=== PATIENT | female | born 1935 | race Caucasian/White ===

== ENCOUNTER 2016-10-16 10:57 | Emergency (ER) | payer MEDICARE ==
[~2016-10-16] VITALS: Ht 160 cm; Wt 60.5 kg
[2016-10-16 11:02] VITALS: TEMP 97.6
[2016-10-16 12:06] LABS: BASO % 0.9 % (0.0-2.0); EOS # 0.1 (0.0-0.7); EOS % 2.6 % (0-4.0); GRAN # 3.3 (1.4-6.5); GRAN % 71.1 % (42.2-75.2); LYMPH # 0.8 (1.2-3.4); LYMPH % 17.3 % (20.0-51.0); MEAN CELL VOLUME 93 fl (80.0-100.0); MEAN CORPUSCULAR HGB CONC 34 g/dl (33.0-37.0); MEAN PLATELET VOLUME 9.6 fl (7.4-10.4); MONO # 0.4 (0.1-0.6); MONO % 7.7 % (1.7-9.3); PLATELET COUNT 124 K/mm3 (130-400); WHITE BLOOD COUNT 4.7 K/mm3 (4.8-10.8)
[2016-10-16 12:07] LABS: HEMATOCRIT 25.9 % (37.0-47.0); HEMOGLOBIN 8.8 g/dl (12.5-16.0); MEAN CORPUSCULAR HEMOGLOBIN 31 pg (27.0-31.0)
[2016-10-16 12:24] LABS: ADJUSTED CALCIUM 8.5 mg/dL (8.4-10.2); ALANINE AMINOTRANSFERASE 22 U/L (9-52); ALBUMIN 3.5 gm/dL (3.5-5.0); ALKALINE PHOSPHATASE 56 U/L (50-136); ANION GAP 12 mmol/L (7-16); BILIRUBIN,TOTAL 0.6 mg/dL (0.0-1.0); BLOOD UREA NITROGEN 46 mg/dL (7-17); CALCIUM 8.1 mg/dL (8.4-10.2); CARBON DIOXIDE 22 mmol/L (22-30); CHLORIDE 107 mmol/L (98-107); CREATININE, serum 2.67 mg/dL (0.52-1.25); GLUCOSE 45 mg/dL (74-106); POTASSIUM 4.4 mmol/L (3.4-5.0); SODIUM 141 mmol/L (137-145); TOTAL PROTEIN 6.6 gm/dL (6.4-8.2)
[2016-10-16 12:57] LABS: C-REACTIVE PROTEIN < 0.5 mg/dL (0.0-0.9)
[2016-10-16 14:42] VITALS: BP 201/91; PULSE 57
== END 2016-10-16 14:42 | disposition home or self-care (01) ==
LOC: COL.ER 10:57
PROVIDERS: Family Medicine
DX: E11.649 Type 2 diabetes mellitus with hypoglycemia without coma (principal); E11.22 Type 2 diabetes mellitus with diabetic chronic kidney disease; N18.9 Chronic kidney disease, unspecified; Z79.4 Long term (current) use of insulin
CPT/HCPCS: J7042

== ENCOUNTER 2017-01-08 20:13 | Inpatient (IN) | payer MEDICARE ==
[~2017-01-08] VITALS: Ht 154.9 cm; Wt 61.2 kg
[2017-01-08 22:36] VITALS: BP 162/64; PULSE 53; TEMP 96.5
[2017-01-08 23:20] LABS: MEAN CELL VOLUME 97 fl (80.0-100.0); MEAN CORPUSCULAR HGB CONC 33 g/dl (33.0-37.0); MEAN PLATELET VOLUME 12.1 fl (7.4-10.4); PLATELET COUNT 112 K/mm3 (130-400); RED BLOOD COUNT 2.98 M/mm3 (4.10-5.30); REDCELL DISTRIBUTION WIDTH-CV 14.6 % (11.5-14.5)
[2017-01-08 23:22] LABS: HEMATOCRIT 28.9 % (37.0-47.0); HEMOGLOBIN 9.4 g/dl (12.5-16.0); MEAN CORPUSCULAR HEMOGLOBIN 32 pg (27.0-31.0)
[2017-01-08 23:24] LABS: ADD PATHOLOGY DIFF REVIEW NO; WHITE BLOOD COUNT 1.6 K/mm3 (4.8-10.8)
[2017-01-08 23:26] LABS: INR 1.2 (0.8-3.0); PROTHROMBIN TIME 13.7 SECONDS (9.7-12.8)
[2017-01-08 23:29] LABS: PARTIAL THROMBOPLASTIN TIME 37.4 SECONDS (26.0-37.0)
[2017-01-08 23:30] LABS: ADJUSTED CALCIUM 8.6 mg/dL (8.4-10.2); ALBUMIN 3.2 gm/dL (3.5-5.0); BILIRUBIN,TOTAL 0.8 mg/dL (0.0-1.0); CREATININE, serum 3.52 mg/dL (0.52-1.25); MAGNESIUM 1.8 mg/dL (1.6-2.3); PHOSPHOROUS 5.1 mg/dL (2.5-4.5); POTASSIUM 4.7 mmol/L (3.4-5.0); TOTAL PROTEIN 5.9 gm/dL (6.4-8.2)
[2017-01-09] VITALS (716 sets, daily range): BP systolic 101–141; BP diastolic 40–68; PULSE 52–61; TEMP 96.7–99.7; O2SAT 86–100
[2017-01-09 00:15] LABS: BAND 4 % (0-10); EOSINOPHIL 4 % (0-4); NEUTROPHILS 46 % (42.0-75.2); POLYCHROMASIA 1+; TOTAL CELLS COUNTED 100
[2017-01-09 00:16] LABS: SCHISTOCYTES 1+
[2017-01-09 00:17] LABS: ANISOCYTOSIS 1+; MICROCYTOSIS 1+
[2017-01-09 05:49] LABS: ARTERIAL BLD GAS O2 SATURATION 94.8 % (92-100); ARTERIAL BLD GAS TCO2 CT 15.6; ARTERIAL BLOOD GAS BASE EXCESS -12.3 (-2-2); ARTERIAL BLOOD GAS HCO3 14.4 meq/L (22-26); ARTERIAL BLOOD GAS PHT 7.22 C (7.35-7.45); ARTERIAL BLOOD GAS PO2 86.4 mmHg (80-100); ARTERIAL BLOOD GAS PO2T 86.4 (80-100); ARTERIAL BLOOD GAS pH 7.22 (7.35-7.45); OXYHEMOGLOBIN 93.9 %
[2017-01-09 06:06] LABS: ALLEN TEST NO; ATS? NO
[2017-01-09] MEDS ORDERED: CALCITRIOL PO (06:25)
[2017-01-09] MEDS ORDERED: COREG12.5 MG PO (06:26)
[2017-01-09] MEDS ORDERED: CATAPRES 0.1MG0.1 MG PO (06:27)
[2017-01-09] MEDS ORDERED: LYRICA 25MG CAP25 MG PO (06:28)
[2017-01-09] MEDS ORDERED: HUMALOG100 U/ML SQ (06:28)
[2017-01-09 06:48] LABS: MEAN CELL VOLUME 100 fl (80.0-100.0); MEAN CORPUSCULAR HGB CONC 32 g/dl (33.0-37.0); MEAN PLATELET VOLUME 12.2 fl (7.4-10.4); PLATELET COUNT 90 K/mm3 (130-400); RED BLOOD COUNT 2.66 M/mm3 (4.10-5.30); REDCELL DISTRIBUTION WIDTH-CV 14.7 % (11.5-14.5)
[2017-01-09 06:50] LABS: CALCIUM 7.4 mg/dL (8.4-10.2); CREATININE, serum 3.38 mg/dL (0.52-1.25); POTASSIUM 4.6 mmol/L (3.4-5.0)
[2017-01-09 07:05] LABS: ADD PATHOLOGY DIFF REVIEW NO; HEMATOCRIT 26.7 % (37.0-47.0); HEMOGLOBIN 8.4 g/dl (12.5-16.0); MEAN CORPUSCULAR HEMOGLOBIN 32 pg (27.0-31.0); WHITE BLOOD COUNT 1.6 K/mm3 (4.8-10.8)
[2017-01-09 09:53] LABS: ARTERIAL BLD GAS O2 SATURATION 97.4 % (92-100); ARTERIAL BLD GAS TCO2 CT 13.6; ARTERIAL BLOOD GAS HCO3 12.9 meq/L (22-26); ARTERIAL BLOOD GAS PO2 113.9 mmHg (80-100); ARTERIAL BLOOD GAS pH 7.38 (7.35-7.45); OXYHEMOGLOBIN 96.5 %
[2017-01-09 09:55] LABS: ABG VENTILATOR TIDAL VOLUME 430 mL; ATS? NO
[2017-01-09 12:16] LABS: ARTERIAL BLD GAS O2 SATURATION 94.4 % (92-100); ARTERIAL BLD GAS TCO2 CT 13.8; ARTERIAL BLOOD GAS BASE EXCESS -9.6 (-2-2); ARTERIAL BLOOD GAS HCO3 13.2 meq/L (22-26); ARTERIAL BLOOD GAS PHT 7.43 C (7.35-7.45); ARTERIAL BLOOD GAS PO2 72.4 mmHg (80-100); ARTERIAL BLOOD GAS PO2T 72.4 (80-100); ARTERIAL BLOOD GAS pH 7.43 (7.35-7.45); OXYHEMOGLOBIN 93.6 %
[2017-01-09 12:18] LABS: ATS? YES
[2017-01-09 14:15] LABS: ACANTHOCYTES 1+; ANISOCYTOSIS 1+; BAND 46 % (0-10); MYELOCYTE 1 % (0-0); NEUTROPHILS 36 % (42.0-75.2); PLATELET ESTIMATE DECREASED (NORMAL); TOTAL CELLS COUNTED 100
[2017-01-09 19:16] LABS: MEAN CORPUSCULAR HGB CONC 34 g/dl (33.0-37.0); MEAN PLATELET VOLUME 12.2 fl (7.4-10.4); PLATELET COUNT 93 K/mm3 (130-400); REDCELL DISTRIBUTION WIDTH-CV 14.8 % (11.5-14.5); WHITE BLOOD COUNT 3.2 K/mm3 (4.8-10.8)
[2017-01-09 19:21] LABS: CALCIUM 7.2 mg/dL (8.4-10.2); CREATININE, serum 3.62 mg/dL (0.52-1.25); MAGNESIUM 1.5 mg/dL (1.6-2.3); PHOSPHOROUS 4.8 mg/dL (2.5-4.5); POTASSIUM 4.4 mmol/L (3.4-5.0)
[2017-01-09 19:31] LABS: ADD PATHOLOGY DIFF REVIEW NO; HEMATOCRIT 22.7 % (37.0-47.0); HEMOGLOBIN 7.6 g/dl (12.5-16.0); MEAN CELL VOLUME 95 fl (80.0-100.0); MEAN CORPUSCULAR HEMOGLOBIN 32 pg (27.0-31.0)
[2017-01-09 19:47] LABS: ARTERIAL BLD GAS O2 SATURATION 93.2 % (92-100); ARTERIAL BLD GAS TCO2 CT 16.3; ARTERIAL BLOOD GAS BASE EXCESS -7.2 (-2-2); ARTERIAL BLOOD GAS HCO3 15.6 meq/L (22-26); ARTERIAL BLOOD GAS PHT 7.46 C (7.35-7.45); ARTERIAL BLOOD GAS PO2 65.6 mmHg (80-100); ARTERIAL BLOOD GAS PO2T 65.6 (80-100); ARTERIAL BLOOD GAS pH 7.46 (7.35-7.45); OXYHEMOGLOBIN 92.3 %
[2017-01-09 19:50] LABS: ALLEN TEST NO; ATS? YES
[2017-01-09 20:58] LABS: BAND 48 % (0-10); NEUTROPHILS 38 % (42.0-75.2); PLATELET ESTIMATE NORMAL (NORMAL); TOTAL CELLS COUNTED 100
[2017-01-10] VITALS (683 sets, daily range): BP systolic 101–129; BP diastolic 39–56; PULSE 60–69; TEMP 97.6–99.3; O2SAT 90–100
[2017-01-10 04:50] LABS: MEAN CELL VOLUME 94 fl (80.0-100.0); MEAN CORPUSCULAR HGB CONC 33 g/dl (33.0-37.0); MEAN PLATELET VOLUME 12.6 fl (7.4-10.4); PLATELET COUNT 92 K/mm3 (130-400); RED BLOOD COUNT 2.43 M/mm3 (4.10-5.30); REDCELL DISTRIBUTION WIDTH-CV 14.6 % (11.5-14.5); WHITE BLOOD COUNT 4.5 K/mm3 (4.8-10.8)
[2017-01-10 05:07] LABS: ADJUSTED CALCIUM 8.7 mg/dL (8.4-10.2); ALBUMIN 2.3 gm/dL (3.5-5.0); BILIRUBIN,TOTAL 0.7 mg/dL (0.0-1.0); CALCIUM 7.3 mg/dL (8.4-10.2); MAGNESIUM 1.5 mg/dL (1.6-2.3); POTASSIUM 4.3 mmol/L (3.4-5.0); TOTAL PROTEIN 4.6 gm/dL (6.4-8.2)
[2017-01-10 05:11] LABS: ARTERIAL BLD GAS O2 SATURATION 95.5 % (92-100); ARTERIAL BLD GAS TCO2 CT 17.4; ARTERIAL BLOOD GAS BASE EXCESS -5.9 (-2-2); ARTERIAL BLOOD GAS HCO3 16.7 meq/L (22-26); ARTERIAL BLOOD GAS PHT 7.47 C (7.35-7.45); ARTERIAL BLOOD GAS PO2 86.4 mmHg (80-100); ARTERIAL BLOOD GAS PO2T 86.4 (80-100); ARTERIAL BLOOD GAS pH 7.47 (7.35-7.45); OXYHEMOGLOBIN 94.4 %
[2017-01-10 05:14] LABS: ALLEN TEST NO; ATS? YES
[2017-01-10 05:28] LABS: ADD PATHOLOGY DIFF REVIEW NO; HEMATOCRIT 22.9 % (37.0-47.0); HEMOGLOBIN 7.6 g/dl (12.5-16.0); MEAN CORPUSCULAR HEMOGLOBIN 31 pg (27.0-31.0)
[2017-01-10 05:34] LABS: CREATININE, serum 3.96 mg/dL (0.52-1.25)
[2017-01-10 06:11] LABS: BAND 56 % (0-10); EOSINOPHIL 1 % (0-4); METAMYELOCYTE 1 % (0-0); NEUTROPHILS 31 % (42.0-75.2); PLATELET ESTIMATE NORMAL (NORMAL); TOTAL CELLS COUNTED 100
[2017-01-10 11:39] LABS: VENOUS BLOOD GAS BE -6.1 (-4-4); VENOUS BLOOD GAS SAO2 63.4 % (60-80); VENOUS BLOOD GAS SITE CENTRAL LINE
[2017-01-10 18:52] LABS: HEMATOCRIT 25.9 % (37.0-47.0); HEMOGLOBIN 8.7 g/dl (12.5-16.0)
[2017-01-11] VITALS (842 sets, daily range): BP systolic 101–135; BP diastolic 41–76; PULSE 53–60; TEMP 97.3–98.7; O2SAT 94–100
[2017-01-11 05:05] LABS: ARTERIAL BLD GAS O2 SATURATION 96.5 % (92-100); ARTERIAL BLD GAS TCO2 CT 16.1; ARTERIAL BLOOD GAS BASE EXCESS -7.5 (-2-2); ARTERIAL BLOOD GAS HCO3 15.4 meq/L (22-26); ARTERIAL BLOOD GAS PHT 7.43 C (7.35-7.45); ARTERIAL BLOOD GAS PO2 96.6 mmHg (80-100); ARTERIAL BLOOD GAS PO2T 96.6 (80-100); ARTERIAL BLOOD GAS pH 7.43 (7.35-7.45); OXYHEMOGLOBIN 95.5 %
[2017-01-11 05:08] LABS: ALLEN TEST NO; ATS? YES
[2017-01-11 05:45] LABS: ADD PATHOLOGY DIFF REVIEW NO; HEMATOCRIT 25.6 % (37.0-47.0); HEMOGLOBIN 8.5 g/dl (12.5-16.0); MEAN CELL VOLUME 95 fl (80.0-100.0); MEAN CORPUSCULAR HEMOGLOBIN 31 pg (27.0-31.0); MEAN CORPUSCULAR HGB CONC 33 g/dl (33.0-37.0); MEAN PLATELET VOLUME 12.4 fl (7.4-10.4); PLATELET COUNT 86 K/mm3 (130-400); RED BLOOD COUNT 2.71 M/mm3 (4.10-5.30); REDCELL DISTRIBUTION WIDTH-CV 15.1 % (11.5-14.5); WHITE BLOOD COUNT 4.6 K/mm3 (4.8-10.8)
[2017-01-11 06:03] LABS: BAND 38 % (0-10); NEUTROPHILS 51 % (42.0-75.2); PLATELET ESTIMATE DECREASED (NORMAL); TOTAL CELLS COUNTED 100
[2017-01-11 06:10] LABS: ADJUSTED CALCIUM 8.5 mg/dL (8.4-10.2); ALBUMIN 2.2 gm/dL (3.5-5.0); BILIRUBIN,TOTAL 0.9 mg/dL (0.0-1.0); CALCIUM 7.1 mg/dL (8.4-10.2); MAGNESIUM 1.6 mg/dL (1.6-2.3); PHOSPHOROUS 4.9 mg/dL (2.5-4.5); POTASSIUM 3.6 mmol/L (3.4-5.0); TOTAL PROTEIN 4.7 gm/dL (6.4-8.2)
[2017-01-11 06:25] LABS: CREATININE, serum 3.93 mg/dL (0.52-1.25)
[2017-01-11 12:04] LABS: VENOUS BLOOD GAS BE -7.4 (-4-4); VENOUS BLOOD GAS SAO2 69.2 % (60-80)
[2017-01-11 12:05] LABS: VENOUS BLOOD GAS SITE CENTRAL LINE
[2017-01-12] VITALS (1074 sets, daily range): BP systolic 104–166; BP diastolic 45–87; PULSE 54–85; TEMP 98.4–99.8; O2SAT 86–100
[2017-01-12 05:23] LABS: ARTERIAL BLD GAS O2 SATURATION 97.2 % (92-100); ARTERIAL BLD GAS TCO2 CT 17.4; ARTERIAL BLOOD GAS HCO3 16.6 meq/L (22-26); ARTERIAL BLOOD GAS pH 7.41 (7.35-7.45); ATS? YES
[2017-01-12 05:24] LABS: ALLEN TEST YES; ALLENS TEST RESULT PASS
[2017-01-12 05:33] LABS: BASO % 0.6 % (0.0-2.0); EOS # 0.1 (0.0-0.7); EOS % 2.1 % (0-4.0); GRAN % 82.8 % (42.2-75.2); LYMPH # 0.5 (1.2-3.4); LYMPH % 10.6 % (20.0-51.0); MEAN CELL VOLUME 95 fl (80.0-100.0); MEAN CORPUSCULAR HGB CONC 34 g/dl (33.0-37.0); MEAN PLATELET VOLUME 12.9 fl (7.4-10.4); MONO # 0.2 (0.1-0.6); MONO % 3.1 % (1.7-9.3); PLATELET COUNT 74 K/mm3 (130-400); RED BLOOD COUNT 2.65 M/mm3 (4.10-5.30); REDCELL DISTRIBUTION WIDTH-CV 15.6 % (11.5-14.5); WHITE BLOOD COUNT 4.8 K/mm3 (4.8-10.8)
[2017-01-12 05:34] LABS: HEMATOCRIT 25.1 % (37.0-47.0); HEMOGLOBIN 8.4 g/dl (12.5-16.0); MEAN CORPUSCULAR HEMOGLOBIN 32 pg (27.0-31.0)
[2017-01-12 05:42] LABS: ALBUMIN 2.2 gm/dL (3.5-5.0); BILIRUBIN,TOTAL 0.8 mg/dL (0.0-1.0); CALCIUM 7.6 mg/dL (8.4-10.2); MAGNESIUM 1.8 mg/dL (1.6-2.3); PHOSPHOROUS 4.5 mg/dL (2.5-4.5); POTASSIUM 3.6 mmol/L (3.4-5.0); TOTAL PROTEIN 4.7 gm/dL (6.4-8.2)
[2017-01-12 05:49] LABS: CREATININE, serum 4.46 mg/dL (0.52-1.25)
[2017-01-12 16:40] LABS: HEPATITIS B CORE AB,TOTAL Negative (())
[2017-01-12 23:30] LABS: HEPATITIS B SURFACE AB-QL Negative (())
[2017-01-13] VITALS (1033 sets, daily range): BP systolic 127–155; BP diastolic 48–61; PULSE 58–63; TEMP 97.5–98.9; O2SAT 93–100
[2017-01-13 05:04] LABS: ALLEN TEST NO; ARTERIAL BLD GAS O2 SATURATION 97.2 % (92-100); ARTERIAL BLD GAS TCO2 CT 24.9; ARTERIAL BLOOD GAS HCO3 23.9 meq/L (22-26); ARTERIAL BLOOD GAS PHT 7.49 C (7.35-7.45); ARTERIAL BLOOD GAS PO2 102.6 mmHg (80-100); ARTERIAL BLOOD GAS PO2T 102.6 (80-100); ARTERIAL BLOOD GAS pH 7.49 (7.35-7.45); ATS? YES; OXYHEMOGLOBIN 96.3 %
[2017-01-13 05:39] LABS: BASO % 0.6 % (0.0-2.0); EOS # 0.1 (0.0-0.7); EOS % 1.5 % (0-4.0); GRAN # 4.3 (1.4-6.5); GRAN % 82.2 % (42.2-75.2); LYMPH # 0.5 (1.2-3.4); MEAN CELL VOLUME 94 fl (80.0-100.0); MEAN CORPUSCULAR HGB CONC 33 g/dl (33.0-37.0); MEAN PLATELET VOLUME 12.2 fl (7.4-10.4); MONO # 0.3 (0.1-0.6); MONO % 5.4 % (1.7-9.3); PLATELET COUNT 67 K/mm3 (130-400); RED BLOOD COUNT 2.68 M/mm3 (4.10-5.30); REDCELL DISTRIBUTION WIDTH-CV 15.3 % (11.5-14.5); WHITE BLOOD COUNT 5.2 K/mm3 (4.8-10.8)
[2017-01-13 05:42] LABS: HEMATOCRIT 25.3 % (37.0-47.0); HEMOGLOBIN 8.4 g/dl (12.5-16.0); MEAN CORPUSCULAR HEMOGLOBIN 31 pg (27.0-31.0)
[2017-01-13 05:55] LABS: ALBUMIN 2.3 gm/dL (3.5-5.0); BILIRUBIN,TOTAL 0.8 mg/dL (0.0-1.0); CALCIUM 7.6 mg/dL (8.4-10.2); CREATININE, serum 2.91 mg/dL (0.52-1.25); MAGNESIUM 1.9 mg/dL (1.6-2.3); PHOSPHOROUS 2.3 mg/dL (2.5-4.5); POTASSIUM 3.4 mmol/L (3.4-5.0); TOTAL PROTEIN 4.9 gm/dL (6.4-8.2)
[2017-01-13 10:01] LABS: HEPARIN INDUCED ANTIBODY Negative (Negative); HEPARIN INDUCED OD 0.093 (())
[2017-01-14] VITALS (1200 sets, daily range): BP systolic 108–164; BP diastolic 42–57; PULSE 52–72; TEMP 97.4–98.9; O2SAT 81–100
[2017-01-14 04:32] LABS: ARTERIAL BLD GAS TCO2 CT 23.4; ARTERIAL BLOOD GAS BASE EXCESS 0.1 (-2-2); ARTERIAL BLOOD GAS HCO3 22.5 meq/L (22-26); ARTERIAL BLOOD GAS PHT 7.51 C (7.35-7.45); ARTERIAL BLOOD GAS pH 7.51 (7.35-7.45); OXYHEMOGLOBIN 97.2 %
[2017-01-14 04:38] LABS: ARTERIAL BLOOD GAS PO2 137.7 mmHg (80-100); ARTERIAL BLOOD GAS PO2T 137.7 (80-100)
[2017-01-14 04:39] LABS: ATS? YES
[2017-01-14 04:40] LABS: ALLEN TEST NO
[2017-01-14 05:30] LABS: BASO % 0.5 % (0.0-2.0); EOS # 0.1 (0.0-0.7); EOS % 2.7 % (0-4.0); GRAN # 3.3 (1.4-6.5); GRAN % 75.8 % (42.2-75.2); LYMPH # 0.6 (1.2-3.4); LYMPH % 12.8 % (20.0-51.0); MEAN CELL VOLUME 95 fl (80.0-100.0); MEAN CORPUSCULAR HGB CONC 33 g/dl (33.0-37.0); MONO # 0.3 (0.1-0.6); MONO % 6.4 % (1.7-9.3); PLATELET COUNT 71 K/mm3 (130-400); RED BLOOD COUNT 2.95 M/mm3 (4.10-5.30); REDCELL DISTRIBUTION WIDTH-CV 15.5 % (11.5-14.5); WHITE BLOOD COUNT 4.4 K/mm3 (4.8-10.8)
[2017-01-14 05:31] LABS: HEMATOCRIT 28.1 % (37.0-47.0); HEMOGLOBIN 9.2 g/dl (12.5-16.0); MEAN CORPUSCULAR HEMOGLOBIN 31 pg (27.0-31.0)
[2017-01-14 05:39] LABS: ADJUSTED CALCIUM 9.1 mg/dL (8.4-10.2); ALBUMIN 2.4 gm/dL (3.5-5.0); BILIRUBIN,TOTAL 0.8 mg/dL (0.0-1.0); CALCIUM 7.8 mg/dL (8.4-10.2); CREATININE, serum 3.5 mg/dL (0.52-1.25); PHOSPHOROUS 2.7 mg/dL (2.5-4.5); POTASSIUM 3.5 mmol/L (3.4-5.0); TOTAL PROTEIN 5.2 gm/dL (6.4-8.2)
[2017-01-15] VITALS (551 sets, daily range): BP systolic 135–151; BP diastolic 41–75; PULSE 64–82; TEMP 97.4–98.9; O2SAT 61–100
[2017-01-15 07:13] LABS: ADJUSTED CALCIUM 8.8 mg/dL (8.4-10.2); ALBUMIN 2.5 gm/dL (3.5-5.0); BILIRUBIN,TOTAL 0.8 mg/dL (0.0-1.0); CALCIUM 7.6 mg/dL (8.4-10.2); CREATININE, serum 2.26 mg/dL (0.52-1.25); MAGNESIUM 1.9 mg/dL (1.6-2.3); PHOSPHOROUS 2.8 mg/dL (2.5-4.5); POTASSIUM 3.6 mmol/L (3.4-5.0); TOTAL PROTEIN 5.3 gm/dL (6.4-8.2)
[2017-01-16 00:15] VITALS: BP 138/47; PULSE 76; TEMP 98
[2017-01-16 06:06] VITALS: BP 147/65; PULSE 73; TEMP 97.7
[2017-01-16 07:49] LABS: ADJUSTED CALCIUM 8.7 mg/dL (8.4-10.2); ALBUMIN 2.6 gm/dL (3.5-5.0); BILIRUBIN,TOTAL 0.6 mg/dL (0.0-1.0); CALCIUM 7.6 mg/dL (8.4-10.2); CREATININE, serum 2.91 mg/dL (0.52-1.25); MAGNESIUM 2.1 mg/dL (1.6-2.3); POTASSIUM 3.7 mmol/L (3.4-5.0); TOTAL PROTEIN 5.4 gm/dL (6.4-8.2)
[2017-01-16 09:55] VITALS: BP 146/57; PULSE 86; TEMP 98.1
[2017-01-16 13:31] VITALS: BP 120/47; PULSE 77
[2017-01-16 17:35] VITALS: BP 151/58; PULSE 80; TEMP 98.4
[2017-01-16 21:41] VITALS: BP 144/74; PULSE 75; TEMP 97.4
[2017-01-17 01:36] VITALS: BP 148/81; PULSE 80; TEMP 97.4
[2017-01-17 05:17] VITALS: BP 153/80; PULSE 86; TEMP 96.7
[2017-01-17 07:34] LABS: ADJUSTED CALCIUM 8.5 mg/dL (8.4-10.2); ALBUMIN 2.7 gm/dL (3.5-5.0); BILIRUBIN,TOTAL 0.7 mg/dL (0.0-1.0); CALCIUM 7.5 mg/dL (8.4-10.2); CREATININE, serum 3.49 mg/dL (0.52-1.25); PHOSPHOROUS 3.3 mg/dL (2.5-4.5); POTASSIUM 3.9 mmol/L (3.4-5.0); TOTAL PROTEIN 5.6 gm/dL (6.4-8.2)
[2017-01-17 13:48] VITALS: BP 140/49; PULSE 82; TEMP 98.1
[2017-01-17 18:17] VITALS: BP 140/61; PULSE 78; TEMP 98.4
[2017-01-17 20:00] VITALS: BP 176/59; PULSE 78; TEMP 98.2
[2017-01-18 01:06] VITALS: BP 135/53; PULSE 82; TEMP 98.5
[2017-01-18 05:16] VITALS: BP 133/49; PULSE 83; TEMP 97.6
[2017-01-18 06:52] LABS: MEAN CELL VOLUME 97 fl (80.0-100.0); MEAN CORPUSCULAR HGB CONC 32 g/dl (33.0-37.0); MEAN PLATELET VOLUME 11.7 fl (7.4-10.4); PLATELET COUNT 150 K/mm3 (130-400); RED BLOOD COUNT 2.68 M/mm3 (4.10-5.30); REDCELL DISTRIBUTION WIDTH-CV 15.8 % (11.5-14.5); WHITE BLOOD COUNT 7.5 K/mm3 (4.8-10.8)
[2017-01-18 06:56] LABS: HEMOGLOBIN 8.2 g/dl (12.5-16.0); MEAN CORPUSCULAR HEMOGLOBIN 31 pg (27.0-31.0)
[2017-01-18 06:57] LABS: ADD PATHOLOGY DIFF REVIEW NO
[2017-01-18 07:36] LABS: ADJUSTED CALCIUM 8.8 mg/dL (8.4-10.2); ALBUMIN 2.6 gm/dL (3.5-5.0); BILIRUBIN,TOTAL 0.6 mg/dL (0.0-1.0); CALCIUM 7.7 mg/dL (8.4-10.2); CREATININE, serum 2.63 mg/dL (0.52-1.25); PHOSPHOROUS 2.8 mg/dL (2.5-4.5); POTASSIUM 3.1 mmol/L (3.4-5.0); TOTAL PROTEIN 5.7 gm/dL (6.4-8.2)
[2017-01-18 07:38] LABS: EOSINOPHIL 1 % (0-4); NEUTROPHILS 89 % (42.0-75.2); PLATELET ESTIMATE NORMAL (NORMAL); TOTAL CELLS COUNTED 100
[2017-01-18 07:39] LABS: ANISOCYTOSIS 1+; HYPOCHROMIA 1+; OVALOCYTES 1+; TEAR DROP CELLS 1+
[2017-01-18 09:27] VITALS: BP 154/55; PULSE 80; TEMP 98.5
[2017-01-18 14:00] VITALS: BP 159/65; PULSE 78; TEMP 98.3
[2017-01-18 17:00] VITALS: BP 166/51; PULSE 77; TEMP 99.3
[2017-01-18 21:12] VITALS: BP 148/53; PULSE 83; TEMP 98.5
[2017-01-19 01:55] VITALS: BP 130/43; PULSE 64; TEMP 98.9
[2017-01-19 04:39] VITALS: BP 169/56; PULSE 88; TEMP 99.2
[2017-01-19 06:30] LABS: BASO % 0.6 % (0.0-2.0); EOS # 0.1 (0.0-0.7); EOS % 1.4 % (0-4.0); LYMPH # 0.5 (1.2-3.4); LYMPH % 6.3 % (20.0-51.0); MEAN CELL VOLUME 96 fl (80.0-100.0); MEAN CORPUSCULAR HGB CONC 32 g/dl (33.0-37.0); MEAN PLATELET VOLUME 11.9 fl (7.4-10.4); MONO # 0.5 (0.1-0.6); MONO % 6.6 % (1.7-9.3); PLATELET COUNT 186 K/mm3 (130-400); RED BLOOD COUNT 2.72 M/mm3 (4.10-5.30); REDCELL DISTRIBUTION WIDTH-CV 15.9 % (11.5-14.5); WHITE BLOOD COUNT 7.1 K/mm3 (4.8-10.8)
[2017-01-19 06:31] LABS: HEMATOCRIT 26.2 % (37.0-47.0); HEMOGLOBIN 8.5 g/dl (12.5-16.0); MEAN CORPUSCULAR HEMOGLOBIN 31 pg (27.0-31.0)
[2017-01-19 06:42] LABS: ADJUSTED CALCIUM 8.8 mg/dL (8.4-10.2); ALBUMIN 2.8 gm/dL (3.5-5.0); BILIRUBIN,TOTAL 0.7 mg/dL (0.0-1.0); CALCIUM 7.8 mg/dL (8.4-10.2); CREATININE, serum 1.96 mg/dL (0.52-1.25); MAGNESIUM 1.9 mg/dL (1.6-2.3); PHOSPHOROUS 2.9 mg/dL (2.5-4.5); POTASSIUM 3.8 mmol/L (3.4-5.0)
[2017-01-19 10:00] VITALS: BP 149/57; PULSE 74; TEMP 99.5
[2017-01-19 14:23] VITALS: BP 140/54; PULSE 88; TEMP 98.7
[2017-01-19 17:26] VITALS: BP 139/42; PULSE 85; TEMP 98.2
[2017-01-19 22:00] VITALS: BP 142/44; PULSE 87; TEMP 98.2
[2017-01-20 01:23] VITALS: BP 146/49; PULSE 80; TEMP 98.2
[2017-01-20 05:54] VITALS: BP 159/57; PULSE 86; TEMP 98.4
[2017-01-20 07:37] LABS: MEAN CELL VOLUME 98 fl (80.0-100.0); MEAN CORPUSCULAR HGB CONC 32 g/dl (33.0-37.0); MEAN PLATELET VOLUME 11.6 fl (7.4-10.4); PLATELET COUNT 215 K/mm3 (130-400); REDCELL DISTRIBUTION WIDTH-CV 15.7 % (11.5-14.5); WHITE BLOOD COUNT 5.2 K/mm3 (4.8-10.8)
[2017-01-20 07:54] LABS: ADJUSTED CALCIUM 8.6 mg/dL (8.4-10.2); ALBUMIN 2.7 gm/dL (3.5-5.0); BILIRUBIN,TOTAL 0.6 mg/dL (0.0-1.0); CALCIUM 7.6 mg/dL (8.4-10.2); CREATININE, serum 2.81 mg/dL (0.52-1.25); MAGNESIUM 1.9 mg/dL (1.6-2.3); PHOSPHOROUS 3.8 mg/dL (2.5-4.5); POTASSIUM 3.6 mmol/L (3.4-5.0); TOTAL PROTEIN 5.7 gm/dL (6.4-8.2)
[2017-01-20 08:19] LABS: HEMATOCRIT 24.4 % (37.0-47.0); HEMOGLOBIN 7.9 g/dl (12.5-16.0); MEAN CORPUSCULAR HEMOGLOBIN 32 pg (27.0-31.0)
[2017-01-20 10:46] VITALS: BP 151/72; PULSE 88; TEMP 96.7
[2017-01-20 14:45] VITALS: BP 118/50; PULSE 86; TEMP 98.7
[2017-01-20 18:17] VITALS: BP 142/58; PULSE 80; TEMP 98
[2017-01-20 22:38] VITALS: BP 144/44; PULSE 84; TEMP 98
[2017-01-21 00:19] VITALS: BP 155/49; PULSE 79; TEMP 97.9
[2017-01-21 05:40] LABS: MEAN CELL VOLUME 96 fl (80.0-100.0); MEAN CORPUSCULAR HGB CONC 32 g/dl (33.0-37.0); MEAN PLATELET VOLUME 10.7 fl (7.4-10.4); PLATELET COUNT 264 K/mm3 (130-400); RED BLOOD COUNT 2.61 M/mm3 (4.10-5.30); REDCELL DISTRIBUTION WIDTH-CV 15.7 % (11.5-14.5); WHITE BLOOD COUNT 5.5 K/mm3 (4.8-10.8)
[2017-01-21 05:44] LABS: HEMATOCRIT 25.1 % (37.0-47.0); HEMOGLOBIN 8.1 g/dl (12.5-16.0); MEAN CORPUSCULAR HEMOGLOBIN 31 pg (27.0-31.0)
[2017-01-21 05:51] LABS: ADJUSTED CALCIUM 8.8 mg/dL (8.4-10.2); ALBUMIN 2.7 gm/dL (3.5-5.0); BILIRUBIN,TOTAL 0.6 mg/dL (0.0-1.0); CALCIUM 7.8 mg/dL (8.4-10.2); CREATININE, serum 3.3 mg/dL (0.52-1.25); PHOSPHOROUS 4.4 mg/dL (2.5-4.5); POTASSIUM 3.8 mmol/L (3.4-5.0); TOTAL PROTEIN 5.8 gm/dL (6.4-8.2)
[2017-01-21 06:05] VITALS: BP 153/49; PULSE 85; TEMP 98
[2017-01-21] MEDS ORDERED: IPRATROPIUM BROM3 M1 IH (08:09)
[2017-01-21] MEDS ORDERED: LOPRESSOR 225 MG/TAB PO (08:10)
[2017-01-21] MEDS ORDERED: TYLENOL 325MG325 MG PO (08:10)
[2017-01-21] MEDS ORDERED: PROTONIX40 MG/Pack PEG (08:11)
[2017-01-21] MEDS ORDERED: ATIVAN 0.50.5 MG/TAB PO (08:11)
[2017-01-21] MEDS ORDERED: NOVOLOG FLEX100 U/ML SQ (08:13)
[2017-01-21 14:13] VITALS: BP 155/46; PULSE 81; TEMP 97.9
== END 2017-01-21 16:00 | DRG 326 ==
LOC: ICU 20:13 → INPTSU 22:25 → ICU 22:25 → SURG 01-15 16:27
PROVIDERS: Anesthesiology Critical Care Medicine; Family Medicine; Internal Medicine; Internal Medicine Cardiovascular Disease; Internal Medicine Pulmonary Disease; Nurse Practitioner Family
PROC: 0DU607Z Supplement Stomach with Autologous Tissue Substitute, Open Approach (ICD-10-PCS; principal; 2017-01-09)
PROC: 0DH63UZ Insertion of Feeding Device into Stomach, Percutaneous Approach (ICD-10-PCS; 2017-01-09)
PROC: 5A1955Z Respiratory Ventilation, Greater than 96 Consecutive Hours (ICD-10-PCS; 2017-01-09)
PROC: 02HV33Z Insertion of Infusion Device into Superior Vena Cava, Percutaneous Approach (ICD-10-PCS; 2017-01-11)
PROC: 5A1D60Z (ICD-10-PCS; 2017-01-12)
DX: K25.2 Acute gastric ulcer with both hemorrhage and perforation (principal); K65.0 Generalized (acute) peritonitis; A41.9 Sepsis, unspecified organism; R65.21 Severe sepsis with septic shock; J96.01 Acute respiratory failure with hypoxia; I50.33 Acute on chronic diastolic (congestive) heart failure; N18.6 End stage renal disease; I13.0 Hypertensive heart and chronic kidney disease with heart failure and stage 1 through stage 4 chronic kidney disease, or unspecified chronic kidney disease; N17.9 Acute kidney failure, unspecified; E87.4 Mixed disorder of acid-base balance; D61.818 Other pancytopenia; D62 Acute posthemorrhagic anemia; E44.0 Moderate protein-calorie malnutrition; G72.81 Critical illness myopathy; R04.2 Hemoptysis; E11.22 Type 2 diabetes mellitus with diabetic chronic kidney disease; I25.10 Atherosclerotic heart disease of native coronary artery without angina pectoris; I08.1 Rheumatic disorders of both mitral and tricuspid valves; I27.2 Other secondary pulmonary hypertension; Z95.1 Presence of aortocoronary bypass graft; E11.65 Type 2 diabetes mellitus with hyperglycemia
CPT/HCPCS: OP; 99223-AI; 99233-AI; 99239; A4315; B4087; B4178; C1751; C9113; J0330; J0360; J0610; J1170; J1265; J1450; J1644; J1650; J1815; J1940; J2060; J2250; J2370; J2543; J3010; J3475; J3480; J7030; J7050; J7060; J7131; P9016

== ENCOUNTER 2017-01-21 16:06 | Inpatient (IN) | payer MEDICARE ==
[~2017-01-21] VITALS: Ht 162.6 cm; Wt 64.4 kg
[~2017-01-21 16:06] MED LIST: ATIVAN 0.50.5 MG/TAB PO; CALCITRIOL PO; CATAPRES 0.1MG0.1 MG PO; COREG12.5 MG PO; HUMALOG100 U/ML SQ; IPRATROPIUM BROM3 M1 IH; LOPRESSOR 225 MG/TAB PO; LYRICA 25MG CAP25 MG PO; NOVOLOG FLEX100 U/ML SQ; PROTONIX40 MG/Pack PEG; TYLENOL 325MG325 MG PO
[2017-01-21 18:00] VITALS: BP 109/54; PULSE 77; TEMP 97.7
[2017-01-21 19:56] VITALS: BP 151/47; PULSE 79; TEMP 98.9
[2017-01-22 04:56] VITALS: BP 149/51; PULSE 79; TEMP 98.8
[2017-01-22 08:13] LABS: MEAN CELL VOLUME 96 fl (80.0-100.0); MEAN CORPUSCULAR HGB CONC 32 g/dl (33.0-37.0); PLATELET COUNT 331 K/mm3 (130-400); RED BLOOD COUNT 2.77 M/mm3 (4.10-5.30); REDCELL DISTRIBUTION WIDTH-CV 15.8 % (11.5-14.5); WHITE BLOOD COUNT 5.8 K/mm3 (4.8-10.8)
[2017-01-22 08:24] LABS: CALCIUM 7.9 mg/dL (8.4-10.2); CREATININE, serum 2.3 mg/dL (0.52-1.25); PHOSPHOROUS 3.1 mg/dL (2.5-4.5); POTASSIUM 3.6 mmol/L (3.4-5.0)
[2017-01-22 08:28] LABS: ADD PATHOLOGY DIFF REVIEW NO; HEMATOCRIT 26.7 % (37.0-47.0); HEMOGLOBIN 8.5 g/dl (12.5-16.0); MEAN CORPUSCULAR HEMOGLOBIN 31 pg (27.0-31.0)
[2017-01-22 11:21] LABS: BAND 2 % (0-10); BASOPHIL 3 % (0-2); EOSINOPHIL 1 % (0-4); NEUTROPHILS 82 % (42.0-75.2); TOTAL CELLS COUNTED 100
[2017-01-22 11:22] LABS: ANISOCYTOSIS 1+; HYPOCHROMIA 1+; PLATELET ESTIMATE NORMAL (NORMAL)
[2017-01-22 17:49] VITALS: BP 194/60; PULSE 79; TEMP 97.2
[2017-01-23 05:36] VITALS: BP 134/47; PULSE 74; TEMP 97.7
[2017-01-23 12:24] VITALS: BP 116/65; PULSE 77; TEMP 97.8
[2017-01-23 17:35] VITALS: BP 184/74; PULSE 74; TEMP 97.1
[2017-01-24 03:00] VITALS: BP 160/45; PULSE 77; TEMP 98.2
[2017-01-24 04:46] VITALS: BP 147/49; PULSE 82
[2017-01-24 19:00] VITALS: BP 124/48; PULSE 84; TEMP 99.3
[2017-01-25 05:19] VITALS: BP 132/40; PULSE 64; TEMP 98.5
[2017-01-25 18:41] VITALS: BP 171/57; PULSE 80; TEMP 98.7
[2017-01-26 05:26] VITALS: BP 164/54; PULSE 74; TEMP 98.4
[2017-01-26 07:43] LABS: MEAN CELL VOLUME 96 fl (80.0-100.0); MEAN CORPUSCULAR HGB CONC 32 g/dl (33.0-37.0); MEAN PLATELET VOLUME 10.2 fl (7.4-10.4); PLATELET COUNT 271 K/mm3 (130-400); RED BLOOD COUNT 2.43 M/mm3 (4.10-5.30); REDCELL DISTRIBUTION WIDTH-CV 15.6 % (11.5-14.5); WHITE BLOOD COUNT 4.3 K/mm3 (4.8-10.8)
[2017-01-26 07:52] LABS: HEMATOCRIT 23.4 % (37.0-47.0); HEMOGLOBIN 7.4 g/dl (12.5-16.0); MEAN CORPUSCULAR HEMOGLOBIN 30 pg (27.0-31.0)
[2017-01-26 08:00] LABS: ALBUMIN 2.6 gm/dL (3.5-5.0); CALCIUM 7.4 mg/dL (8.4-10.2); CREATININE, serum 3.5 mg/dL (0.52-1.25); POTASSIUM 3.7 mmol/L (3.4-5.0)
[2017-01-26 08:27] LABS: PHOSPHOROUS 4.8 mg/dL (2.5-4.5)
[2017-01-26 16:42] VITALS: BP 169/64; PULSE 73; TEMP 98.1
[2017-01-27 04:49] VITALS: BP 137/46; PULSE 73; TEMP 98.7
[2017-01-27 16:13] VITALS: BP 194/64; PULSE 78; TEMP 98.4
[2017-01-27 23:58] VITALS: BP 140/57; PULSE 69
[2017-01-28 03:58] VITALS: BP 140/54; PULSE 76; TEMP 99.6
[2017-01-28 06:09] LABS: MEAN CELL VOLUME 96 fl (80.0-100.0); MEAN CORPUSCULAR HGB CONC 32 g/dl (33.0-37.0); MEAN PLATELET VOLUME 10.1 fl (7.4-10.4); PLATELET COUNT 258 K/mm3 (130-400); RED BLOOD COUNT 2.43 M/mm3 (4.10-5.30); REDCELL DISTRIBUTION WIDTH-CV 15.4 % (11.5-14.5); WHITE BLOOD COUNT 5.6 K/mm3 (4.8-10.8)
[2017-01-28 06:16] LABS: ADJUSTED CALCIUM 8.7 mg/dL (8.4-10.2); ALBUMIN 2.6 gm/dL (3.5-5.0); BILIRUBIN,TOTAL 0.6 mg/dL (0.0-1.0); CALCIUM 7.6 mg/dL (8.4-10.2); CREATININE, serum 2.97 mg/dL (0.52-1.25); MAGNESIUM 1.7 mg/dL (1.6-2.3); PHOSPHOROUS 4.1 mg/dL (2.5-4.5); POTASSIUM 3.5 mmol/L (3.4-5.0); TOTAL PROTEIN 5.7 gm/dL (6.4-8.2)
[2017-01-28 06:21] LABS: ADD PATHOLOGY DIFF REVIEW NO; HEMATOCRIT 23.2 % (37.0-47.0); HEMOGLOBIN 7.5 g/dl (12.5-16.0); MEAN CORPUSCULAR HEMOGLOBIN 31 pg (27.0-31.0)
[2017-01-28 06:35] LABS: BAND 16 % (0-10); EOSINOPHIL 3 % (0-4); NEUTROPHILS 63 % (42.0-75.2); TOTAL CELLS COUNTED 100
[2017-01-28 16:17] VITALS: BP 150/43; PULSE 76; TEMP 99.1
[2017-01-29 06:48] VITALS: BP 151/61; PULSE 65; TEMP 98.5
[2017-01-29 09:22] VITALS: BP 151/61; PULSE 65; TEMP 98.5
[2017-01-29] MEDS ORDERED: SEROQUEL 2525 MG/TAB PO (11:05)
[2017-01-29] MEDS ORDERED: MIRTAZAPINE7.5 MG PO (11:05)
[2017-01-29] MEDS ORDERED: SEROQUEL50 MG PO (11:05)
[2017-01-29] MEDS ORDERED: ARANESP0.04 MG/ML SQ (11:05)
[2017-01-29] MEDS ORDERED: ZOFRAN 4MG T4 MG/TAB PO (11:06)
[2017-01-29] MEDS ORDERED: PROTONIX 40MG T40 MG PO (11:06)
[2017-01-29] MEDS ORDERED: LEVEMIR FLEX100 U/ML SQ (11:07)
[2017-01-29] MEDS ORDERED: NOVOLOG FLEX100 U/ML SQ (11:07)
[2017-01-29] MEDS ORDERED: FLAGYL500 MG PO (11:09)
[2017-01-29 11:26] VITALS: BP 151/61; PULSE 65; TEMP 98.5
== END 2017-01-29 13:35 | DRG 91 ==
PROVIDERS: Family Medicine; Internal Medicine
PROC: 5A1D60Z (ICD-10-PCS; principal; 2017-01-23)
DX: G72.81 Critical illness myopathy (principal); K25.2 Acute gastric ulcer with both hemorrhage and perforation; N18.6 End stage renal disease; A41.9 Sepsis, unspecified organism; R65.21 Severe sepsis with septic shock; I12.0 Hypertensive chronic kidney disease with stage 5 chronic kidney disease or end stage renal disease; E44.0 Moderate protein-calorie malnutrition; E11.22 Type 2 diabetes mellitus with diabetic chronic kidney disease; Z99.2 Dependence on renal dialysis; D64.9 Anemia, unspecified; Z95.1 Presence of aortocoronary bypass graft; I25.10 Atherosclerotic heart disease of native coronary artery without angina pectoris; F43.21 Adjustment disorder with depressed mood
CPT/HCPCS: 90791-AI; 99223-AI; 99232-AI; 99233-AI; 99239; J0882; J1815